=== PATIENT | male | born 1955 | race Caucasian/White ===

== ENCOUNTER → 2024-04-08 | Outpatient (CLI) | payer MEDICARE, OTHER, SELFPAY ==
[2024-04-08 11:57] LABS: Erythrocyte Sedimentation Rate 35 mm/hr (0-20)
[2024-04-08 12:00] LABS: Prothrombin Time (Protime)PT. 13.1 SECONDS (11.7-14.9)
[2024-04-08 12:01] LABS: ALB/GLOB Ratio 1.3 RATIO (0.9-2.4); AST(SGOT) 25 U/L (<=37); Alanine Aminotransfer ALT/SGPT 31 U/L (<=46); Albumin, Serum 4.2 g/dL (3.4-4.8); Alkaline Phosphatase 77 U/L (40-129); Anion Gap 14 (5-15); BUN 18 mg/dL (4-19); Calcium 9.1 mg/dL (7.6-11.0); Carbon Dioxide 24.4 mmol/L (22.0-29.0); Chloride 100 mmol/L (96-108); EST Glomerular Filtration Rate 66 (>60); Globulin 3.3 g/dL (2.2-4.2); Glucose 114 mg/dL (70-99); Potassium 3.5 mmol/L (3.3-5.1); Protein, Total 7.5 g/dL (5.9-8.4); Sodium Level 138 mmol/L (133-145); Total Bilirubin 0.43 mg/dL (0.00-1.30)
[2024-04-08 12:02] LABS: Ammonia 25.8 umol/L (16-60)
[2024-04-08 13:07] LABS: Iron 66 ug/dL (65-175); LDH 186 U/L (87-241)
[2024-04-09 03:56] LABS: Iron Binding Capacity,Total 248 ug/dL (250-450)
[2024-04-09 15:08] LABS: Alpha Antitrypsin Serum 165 mg/dL (101-187); Anti-Centromere B Ab <0.2 AI (0.0-0.9); Anti-Chromatin <0.2 AI (0.0-0.9); Anti-Jo <0.2 AI (0.0-0.9); Anti-Mitochondrial AB <20.0 Units (0.0-20.0); Anti-Scleroderma-70 AB <0.2 AI (0.0-0.9); Anti-dsDNA Ab <1 IU/mL (0-9); RNP Ab <0.2 AI (0.0-0.9); SJOGREN'S Anti-SS-A test < 0.2 AI (0.0-0.9); SJOGREN'S Anti-SS-B test < 0.2 AI (0.0-0.9); Smith Ab <0.2 AI (0.0-0.9)
[2024-04-14 18:07] LABS: AFP, Tumor Marker 3.2 ng/mL (0.0-8.4); Albumin 3.3 g/dL (2.9-4.4); Alpha-1-Globulins 0.3 g/dL (0.0-0.4); Alpha-2-Globulins 0.9 g/dL (0.4-1.0); Angiotensin Convert Enzyme 52 U/L (14-82); Anti-Smooth Muscle ABS 12 Units (0-19); Antithrombin 3 Function 125 % (75-135); Cytoplasmic Ab (C-ANCA) <1:20 titer (Neg:<1:20); Endomysial Antibody IgA Negative (Negative); Gamma Globulin 1.2 g/dL (0.4-1.8); Immunoglobulin A 339 mg/dL (61-437); Immunoglobulin E 218 IU/mL (6-495); Immunoglobulin G 1191 mg/dL (603-1613); Immunoglobulin M 96 mg/dL (20-172); PROEL- TOTAL PROTEIN 6.9 g/dL (6.0-8.5); Perinuclear Ab (P-ANCA) <1:20 titer (Neg:<1:20); Transferrin 209 mg/dL (177-329); t-Transglutaminase IgA <2 U/mL (0-3)
== END | disposition home or self-care (01) ==
LOC: LAB 11:00
PROVIDERS: PCP Physician Assistant; Referring Provider Internal Medicine Gastroenterology; Visit Provider Internal Medicine Gastroenterology
DX: K74.60 Unspecified cirrhosis of liver (principal); D64.9 Anemia, unspecified
CPT/HCPCS: 80053; 82103; 82105; 82140; 82164; 82784; 82785; 83516; 83540; 83550; 83615; 84165; 84466; 85300; 85610; 85652; 86037; 86140; 86225; 86235; 86255; 86334

== ENCOUNTER → 2024-04-26 | Day surgery (SDC) | payer MEDICARE, OTHER, SELFPAY ==
[2024-04-26 10:06] VITALS: BP 144/89; PULSE 54; RESP 14; TEMP 36.6; O2SAT 100
[2024-04-26] MEDS: Lidocaine Jelly 2% 20 ML Syringe (URO-JET) 1 APPLIC (10:08)
== END | disposition home or self-care (01) ==
PROVIDERS: PCP Physician Assistant; Referring Provider Physician Assistant; Visit Provider Internal Medicine Gastroenterology
PROC: F00ZJWZ Instrumental Swallowing and Oral Function Assessment using Swallowing Equipment (ICD-10-PCS; CPT 43235; principal; 2024-04-26 07:55)
DX: R13.10 Dysphagia, unspecified (principal)
CPT/HCPCS: 91010

== ENCOUNTER → 2024-05-24 | Outpatient (CLI) | payer MEDICARE, OTHER, SELFPAY ==
--- NOTE | 2024-05-25 08:26 | ST.MBS ---
Modified Barium Swallow Patient Information Study Date: 05/25/24 Study Time: 13:00 Direct Billable Minutes: 95 Total Minutes procedure & reportin Diagnosis: Dysphagia R13.10, GERD K21.9 Referring Physician: FriendStevie Medical History: The patient is a 69-year-old male with a history of hearing loss, gallstones, hypertension, gout, alcohol use disorder, and alcoholic cirrhosis with ascites, jaundice, and esophageal varices. He reports intermittent esophageal dysphagia and a persistent globus sensation. He had an EGD last year and two ENT evaluations, all of which were normal. A prior barium swallow was also unremarkable. He has not undergone esophageal manometry or functional swallow studies. A modified barium swallow is recommended to further evaluate his swallowing function. Mental Status: WNL Respiratory Status: Oxygenating on Room Air Penetration-Aspiration Scale Penetration-Aspiration Scale: OBJECTIVE ASSESSMENT OF SWALLOW FUNCTION (QUANTITATIVE ? PER TRIAL): PENETRATION / ASPIRATION SCALE (DOMINGUEZ): 1 = does not enter airway 2 = enters airway/above vocal folds/ejected 3 = enters airway/above vocal folds/not ejected 4 = enters airway/contacts vocal folds/ejected 5 = enters airway/contacts vocal folds/not ejected 6 = enters airway/below vocal folds/ejected 7 = enters airway/below vocal folds/not ejected despite effort 8 = enters airway/below vocal folds/no effort VIDEOFLOROSCOPIC SCALE SCORE (DOMINGUEZ): Grade I = aspiration of material that has penetrated into the laryngeal vestibule, intact cough reflex Grade II = aspiration < 10 % of the bolus, intact cough reflex Grade III = aspiration of < 10 % of the bolus, reduced cough reflex or aspiration of > 10 % of the bolus, intact cough reflex Grade IV = aspiration of > 10 % of the bolus, reduced cough reflex Penetration-Aspiration Scale Score Thin Liquid via teaspoon: Result: 1= does not enter airway Thin Liquid via small single sip: cup: Result: 1= does not enter airway Thin Liquid via large single sip: cup: Result: 5= enters airways/contacts vocal folds/not ejected Thin Liquid via small single sip: cup Effortful swallow: Result: 1= does not enter airway Thin Liquid via small single sip: cup Effortful swallow Trial 2: Result: 1= does not enter airway [place] Thick Liquid via small single sip: cup: Result: 2= enter airway/above vocal folds/ejected [place] Thick Liquid via small single sip: cup Trial 2: Result: 1= does not enter airway [place] Thick Liquid via small single sip: cup: Result: 1= does not enter airway [place] Thick Liquid via small single sip: cup Trial 2: Result: 1= does not enter airway Pudding via teaspoon: Result: 1= does not enter airway Pudding via teaspoon Trial 2: Result: 1= does not enter airway Cookie: Result: 1= does not enter airway Thin Liquid via small single sip: cup Effortful swallow Trial 3: Result: 1= does not enter airway Thin Liquid via small single sip: cup Effortful swallow Trial 4: Result: 1= does not enter airway Cookie Trial 2: Result: 1= does not enter airway Thin Liquid via single sip: straw Effortful swallow: Result: 1= does not enter airway Oral Phase Labial Seal: No Labial Escape Tongue Control During Bolus Hold: Posterior escape of greater than half of bolus Bolus Preparation/Mastication: Slow prolonged chewing/mashing with complete recollection Bolus Transport/Lingual Motion: Brisk tongue motion Oral Residue: Trace residue lining oral structures Pharyngeal Phase Initiation of Pharyngeal Swallow: Bolus head at posterior laryngeal surgace of epiglottis Soft Palate Elevation: No bolus between soft palate and pharyngeal wall Laryngeal Elevation: Partial superior movement thyroid cart/partial apprx aryt-epig petiole Anterior Hyoid Excursion: Complete anterior movement Epiglottic Movement: Complete inversion Laryngeal Vestibule Closure at Height of Swallow: Incomplete; narrow column of air/contrast in laryngeal vestibule Pharyngeal Stripping Wave: Present - complete Pharyngoesophageal Segment Opening: Parital distension and partial duration; parital obstruction of flow Tongue Base Retraction: Narrow column of contrast between tongue base & post. pharyngeal wall Pharyngeal Residue: Collection of residue within or on pharyngeal structures Esophageal Phase Esophageal Clearance: Esophageal retention w/ retrograde flow below pharyngoesophageal seg. Treatment Strategies Effects of treatment strategies attemped:: reduced bolus size = effective effortful swallow = effective double swallow = effective Diagnosis/Impression Diagnosis: mild pharyngoesophageal dysphagia R13.14 Impression: The patient presents with mild pharyngoesophageal dysphagia. During the swallowing assessment, he demonstrated good bolus control and no premature spillage when cued by the INFANTRY SENIOR SERGEANT to hold the bolus in his mouth prior to swallow initiation (thin liquids via teaspoon, first trial). However, with larger sips, decreased bolus control was observed, resulting in premature spillage and penetration to the vocal cords. This was associated with delayed pharyngeal swallow onset, with the bolus spilling to the posterior epiglottic space prior to initiation. Penetration was also attributed to reduced laryngeal elevation and incomplete airway closure, though the patient demonstrated a strong, effective cough reflex in response. When cued to take small sips by cup followed by a hard swallow, bolus control and airway protection significantly improved, with consistent PAS scores of 1. Tongue base retraction appeared narrow, contributing to mild pharyngeal residue in the valleculae and pyriform sinuses. Residue was reduced with use of a double swallow strategy, as cued by the INFANTRY SENIOR SERGEANT. Mastication was adequate though slowed, likely due to dentition. The patient tolerated a Janessa Doone cookie with a functional oral phase, requiring two swallows to clear oral residue, achieving complete clearance independently. The patient was educated on aspiration precautions, including taking small sips, using hard and double swallows, with cup and straw drinking. These strategies effectively reduced aspiration risk, and the patient was able to demonstrate understanding via verbal teach-back during the session. Mild esophageal retention was noted during the cookie trial; a liquid wash provided partial clearance but resulted in some retrograde flow below the upper esophageal sphincter UES. The patient reported he had discontinued his reflux medication due to side effects, including significant fatigue and concern about falling asleep while driving. The INFANTRY SENIOR SERGEANT strongly recommended follow-up with GI to address reflux management and further intervention. Continued outpatient speech therapy was also encouraged. Recommendations Diet: Regular Textures and Thin Liquids Compensatory Strategies: Small Bites, Small Sips (with hard swallows), Slow Rate, Feed only when alert, Multiple Swallows (to clear pharyngeal residues), Sitting upright and Remain sitting upright for 30 minutes after PO intake Recommend Repeat Modified Barium Swallow: TBD Need for Skilled Speech Therapy Services: Yes Comment: The patient would benefit from skilled speech therapy services to provide education and training on dysphagia management, including compensatory swallowing strategies aimed at reducing aspiration risk. Additionally, therapy should focus on oropharyngeal strengthening exercises to improve bolus control, laryngeal elevation and closure, and tongue base retraction for more efficient and safe swallowing. Recommended Referrals: GI Consult Education Completed: 1. Described result of evaluation. and 2. Pt understands evaluation & agrees with goals and treatment plan. Status Active ST Patient: Active Contact Information [facility] Speech Therapy:: Irasema Manuel M.A. [facility]-INFANTRY SENIOR SERGEANT Speech-Language Pathologist [facility] [address] [place] [address] [email or web address] [phone]
== END | disposition home or self-care (01) ==
LOC: RAD 12:44
PROVIDERS: PCP Physician Assistant; Referring Provider Internal Medicine Gastroenterology; Visit Provider Internal Medicine Gastroenterology
DX: K74.60 Unspecified cirrhosis of liver (principal); K21.9 Gastro-esophageal reflux disease without esophagitis; R13.10 Dysphagia, unspecified
CPT/HCPCS: 74230; 92611

== ENCOUNTER → 2024-07-08 | Outpatient (CLI) | payer MEDICARE, OTHER, SELFPAY ==
--- NOTE | 2024-07-08 07:28 | US_ITS ---
PROCEDURE: ABD LIMITED W/ ELASTOGRAPHY 07/08/2024 REASON FOR EXAM: HX OF LIVER DISEASE TECHNIQUE: Right upper quadrant abdominal ultrasound along with shear wave elastography for non-invasive assessment of liver tissue stiffness. PATIENT PREPARATION: Per protocol COMPARISON: No relevant prior. FINDINGS: LIVER: Size: Enlarged. No intrahepatic ductal dilatation. Length: 22.0 cm Echotexture: Hyperechoic. Contour: Normal Lesions: None identified Blood flow: Hepatopetal. ELASTOGRAPHY: EQI Med: 9.4 kPa EQI Med Jono: 1.77 m/s GALLBLADDER: No calcifications. Gallbladder sludge/gravel. No wall thickening. No edema. COMMON BILE DUCT: 0.52 cm in diameter.. PANCREAS: Suboptimal visualization due to superimposed bowel-gas. RIGHT KIDNEY: Size measures 10.8 x 5.7 x 6.2 cm. Cortex measures 1.7 cm. Sonolucent mass, right kidney measuring 2.3 x 2.7 x 2.4 cm. US/ABD Limited w/ Elastography IMPRESSION: 1. F 2 to F 3, moderate to severe likelihood of clinically significant hepatic fibrosis. 2. Steatosis. 3. Hepatomegaly. 4. Gallbladder sludge/gravel. 5. Right renal cyst. Reference Values: SRU <1.37 m/s (5.7kPa): No to mild fibrosis 1.37 m/s - 2.2 m/s: Moderate to severe fibrosis >2.2 m/s (15kPa): Significant fibrosis / cirrhosis METAVIR Score F2 or higher: 1.34 m/s (5.7kPa) F3 or higher: 1.55 m/s (7.3kPa) F4: 1.80 m/s (10kPa) Reading Location: [place] [address]
== END | disposition home or self-care (01) ==
LOC: US 07:25
PROVIDERS: PCP Physician Assistant
DX: K74.60 Unspecified cirrhosis of liver (principal); R13.10 Dysphagia, unspecified; K21.9 Gastro-esophageal reflux disease without esophagitis
CPT/HCPCS: 76705; 76981

== ENCOUNTER 2024-07-15 15:22 | Outpatient (RCR) | payer MEDICARE, OTHER, SELFPAY ==
--- NOTE | 2024-07-16 12:31 | ST ---
[facility] Speech Pathology [address] [place] [address] Modified Barium Swallow Study MR#: [id number] Acct: [id number] Name: NICOLE DHILLON Rep #: [id number] : 1955 69 From: Irasema Manuel Modified Barium Swallow Patient Information Study Date: 05/25/24 Study Time: 13:00 Direct Billable Minutes: 95 Total Minutes procedure & reportin Diagnosis: Dysphagia R13.10, GERD K21.9 Referring Physician: Stevie Castellano Medical History: The patient is a 69-year-old male with a history of hearing loss, gallstones, hypertension, gout, alcohol use disorder, and alcoholic cirrhosis with ascites, jaundice, and esophageal varices. He reports intermittent esophageal dysphagia and a persistent globus sensation. He had an EGD last year and two ENT evaluations, all of which were normal. A prior barium swallow was also unremarkable. He has not undergone esophageal manometry or functional swallow studies. A modified barium swallow is recommended to further evaluate his swallowing function. Mental Status: WNL Respiratory Status: Oxygenating on Room Air Penetration-Aspiration Scale Penetration-Aspiration Scale: OBJECTIVE ASSESSMENT OF SWALLOW FUNCTION (QUANTITATIVE ? PER TRIAL): PENETRATION / ASPIRATION SCALE (DOMINGUEZ): 1 = does not enter airway 2 = enters airway/above vocal folds/ejected 3 = enters airway/above vocal folds/not ejected 4 = enters airway/contacts vocal folds/ejected 5 = enters airway/contacts vocal folds/not ejected 6 = enters airway/below vocal folds/ejected 7 = enters airway/below vocal folds/not ejected despite effort 8 = enters airway/below vocal folds/no effort VIDEOFLOROSCOPIC SCALE SCORE (DOMINGUEZ): Grade I = aspiration of material that has penetrated into the laryngeal vestibule, intact cough reflex Grade II = aspiration < 10 % of the bolus, intact cough reflex Grade III = aspiration of < 10 % of the bolus, reduced cough reflex or aspiration of > 10 % of the bolus, intact cough reflex Grade IV = aspiration of > 10 % of the bolus, reduced cough reflex Penetration-Aspiration Scale Score Thin Liquid via teaspoon: Result: 1= does not enter airway Thin Liquid via small single sip: cup: Result: 1= does not enter airway Thin Liquid via large single sip: cup: Result: 5= enters airways/contacts vocal folds/not ejected Thin Liquid via small single sip: cup Effortful swallow: Result: 1= does not enter airway Thin Liquid via small single sip: cup Effortful swallow Trial 2: Result: 1= does not enter airway [place] Thick Liquid via small single sip: cup: Result: 2= enter airway/above vocal folds/ejected [place] Thick Liquid via small single sip: cup Trial 2: Result: 1= does not enter airway [place] Thick Liquid via small single sip: cup: Result: 1= does not enter airway [place] Thick Liquid via small single sip: cup Trial 2: Result: 1= does not enter airway Pudding via teaspoon: Result: 1= does not enter airway Pudding via teaspoon Trial 2: Result: 1= does not enter airway Cookie: Result: 1= does not enter airway Thin Liquid via small single sip: cup Effortful swallow Trial 3: Result: 1= does not enter airway Thin Liquid via small single sip: cup Effortful swallow Trial 4: Result: 1= does not enter airway Cookie Trial 2: Result: 1= does not enter airway Thin Liquid via single sip: straw Effortful swallow: Result: 1= does not enter airway Oral Phase Labial Seal: No Labial Escape Tongue Control During Bolus Hold: Posterior escape of greater than half of bolus Bolus Preparation/Mastication: Slow prolonged chewing/mashing with complete recollection Bolus Transport/Lingual Motion: Brisk tongue motion Oral Residue: Trace residue lining oral structures Pharyngeal Phase Initiation of Pharyngeal Swallow: Bolus head at posterior laryngeal surgace of epiglottis Soft Palate Elevation: No bolus between soft palate and pharyngeal wall Laryngeal Elevation: Partial superior movement thyroid cart/partial apprx aryt-epig petiole Anterior Hyoid Excursion: Complete anterior movement Epiglottic Movement: Complete inversion Laryngeal Vestibule Closure at Height of Swallow: Incomplete; narrow column of air/contrast in laryngeal vestibule Pharyngeal Stripping Wave: Present - complete Pharyngoesophageal Segment Opening: Parital distension and partial duration; parital obstruction of flow Tongue Base Retraction: Narrow column of contrast between tongue base & post. pharyngeal wall Pharyngeal Residue: Collection of residue within or on pharyngeal structures Esophageal Phase Esophageal Clearance: Esophageal retention w/ retrograde flow below pharyngoesophageal seg. Treatment Strategies Effects of treatment strategies attemped:: reduced bolus size = effective effortful swallow = effective double swallow = effective Diagnosis/Impression Diagnosis: mild pharyngoesophageal dysphagia R13.14 Impression: The patient presents with mild pharyngoesophageal dysphagia. During the swallowing assessment, he demonstrated good bolus control and no premature spillage when cued by the INBOUND CALL CENTER REPRESENTATIVE to hold the bolus in his mouth prior to swallow initiation (thin liquids via teaspoon, first trial). However, with larger sips, decreased bolus control was observed, resulting in premature spillage and penetration to the vocal cords. This was associated with delayed pharyngeal swallow onset, with the bolus spilling to the posterior epiglottic space prior to initiation. Penetration was also attributed to reduced laryngeal elevation and incomplete airway closure, though the patient demonstrated a strong, effective cough reflex in response. When cued to take small sips by cup followed by a hard swallow, bolus control and airway protection significantly improved, with consistent PAS scores of 1. Tongue base retraction appeared narrow, contributing to mild pharyngeal residue in the valleculae and pyriform sinuses. Residue was reduced with use of a double swallow strategy, as cued by the INBOUND CALL CENTER REPRESENTATIVE. Mastication was adequate though slowed, likely due to dentition. The patient tolerated a Janessa Doone cookie with a functional oral phase, requiring two swallows to clear oral residue, achieving complete clearance independently. The patient was educated on aspiration precautions, including taking small sips, using hard and double swallows, with cup and straw drinking. These strategies effectively reduced aspiration risk, and the patient was able to demonstrate understanding via verbal teach-back during the session. Mild esophageal retention was noted during the cookie trial; a liquid wash provided partial clearance but resulted in some retrograde flow below the upper esophageal sphincter UES. The patient reported he had discontinued his reflux medication due to side effects, including significant fatigue and concern about falling asleep while driving. The INBOUND CALL CENTER REPRESENTATIVE strongly recommended follow-up with GI to address reflux management and further intervention. Continued outpatient speech therapy was also encouraged. Recommendations Diet: Regular Textures and Thin Liquids Compensatory Strategies: Small Bites, Small Sips (with hard swallows), Slow Rate, Feed only when alert, Multiple Swallows (to clear pharyngeal residues), Sitting upright and Remain sitting upright for 30 minutes after PO intake Recommend Repeat Modified Barium Swallow: TBD Need for Skilled Speech Therapy Services: Yes Comment: The patient would benefit from skilled speech therapy services to provide education and training on dysphagia management, including compensatory swallowing strategies aimed at reducing aspiration risk. Additionally, therapy should focus on oropharyngeal strengthening exercises to improve bolus control, laryngeal elevation and closure, and tongue base retraction for more efficient and safe swallowing. Recommended Referrals: GI Consult Education Completed: 1. Described result of evaluation. and 2. Pt understands evaluation & agrees with goals and treatment plan. Status Active ST Patient: Active Contact Information [facility] Speech Therapy:: Irasema Manuel M.A. [facility]-INBOUND CALL CENTER REPRESENTATIVE Speech-Language Pathologist [facility] [address] [place] [address] [email or web address] [phone]
--- NOTE | 2024-07-16 14:00 | HP.SP.EV_ITS ---
Visit History Visit Info Date of Eval: 07/15/24 Today is Visit #: 1 Cutter In: [facility] [place] Attending Doctor: JOELLEN Referring Doctor: JOELLEN Reason for Referral: DYSPHAGIA RX HERE Results: Has previously participated in a MBSS. See results below. Other Relevant Medical History/Diagnoses/Surgery: NICOLE DHILLON is a 69 year old male who presents to speech therapy following a dx of oropharyngeal dysphagia after participating in an MBSS in May 2024 at this facility. He is being followed by Dr. Castellano for GI and has participated in esophageal manometry on 04/26 which revealed: 1) EGJ with normal relaxation and a mean integral resting pressure of -4.5 with normal is less than 15; 2) Esophageal body consistent with spastic esophagus with 85% premature contraction which is greater than the upper limit of normal of 20%; 3) diagnosis is distal esophageal spasm. He was prescribed Amitriptyline, Protonix, and Baclofen however he reports that he is no longer taking these because he didn't like how they made him feel. He reports making diet changes and notices symptoms return if he eats spicy, acidic or hot items. Smoking Status: Former smoker Diagnosis Diagnosis: Oropharyngeal Dysphagia Pain Is pain an issue with your current prescribed condition?: No Personal Preferred language: [place] Patient Allergies Allergies Allergies: Allergies No Known Allergies Allergy (Unverified 06/17/24 09:22) Objective Dysphagia Thin Liquids Administred via: Cup Oral Transit: WNL Bolus clearance: fully cleared Cough: delayed, throat clear and productive Pharyngeal phase: suspect pharyngeal deficits Comments: Pt took sips of thin liquid throughout evaluation to help with secretion production during oropharyngeal exercise trials. He did well with remembering to use small sips. Pt reporting that he knows when he forgets to take small sips because he will almost always cough. Says when he is driving this is distracting to him and he often forgets small sips. Recommended placing a sticky note on his dash to help as a visual aid. Swallowing Impairment Contributing Factors to Swallowing Impairment: Reduced Alertness or Attention and Reduced Laryngeal Excursion Recommendations Swallowing Treatment: Yes Diet Texture Recommendations Solids: Regular (Level 7) Liquids: Thin (Level 0) Safety Saftey Precautions/Swallowing Recommendations (Check all that Apply): Small Sips & Bites when Eating, Multiple Swallows and Other (Specify Below) Other: Effortful swallow Double swallow to assist in esophageal dysphagia Results Swallowing Within Normal Limits: No Swallowing Diagnosis: Oropharyngeal Phase Dysphagia (R13.12) Severity: Mild Modified Barium Results Hx If Applicable Enter into a NOTE MBS Report Entered: Yes MBS Results (from prior exam): 07/16/24 12:31 Speech Therapy by Jacki Figueroa [facility] Speech Pathology [address] [place] [address] Modified Barium Swallow Study MR#: [id number] Acct: [id number] Name: NICOLE DHILLON Rep #: [id number] : 1955 69 From: Irasema Manuel Modified Barium Swallow Patient Information Study Date: 05/25/24 Study Time: 13:00 Direct Billable Minutes: 95 Total Minutes procedure & reportin Diagnosis: Dysphagia R13.10, GERD K21.9 Referring Physician: Stevie Castellano Medical History: The patient is a 69-year-old male with a history of hearing loss, gallstones, hypertension, gout, alcohol use disorder, and alcoholic cirrhosis with ascites, jaundice, and esophageal varices. He reports intermittent esophageal dysphagia and a persistent globus sensation. He had an EGD last year and two ENT evaluations, all of which were normal. A prior barium swallow was also unremarkable. He has not undergone esophageal manometry or functional swallow studies. A modified barium swallow is recommended to further evaluate his swallowing function. Mental Status: WNL Respiratory Status: Oxygenating on Room Air Penetration-Aspiration Scale Penetration-Aspiration Scale: OBJECTIVE ASSESSMENT OF SWALLOW FUNCTION (QUANTITATIVE ? PER TRIAL): PENETRATION / ASPIRATION SCALE (DOMINGUEZ): 1 = does not enter airway 2 = enters airway/above vocal folds/ejected 3 = enters airway/above vocal folds/not ejected 4 = enters airway/contacts vocal folds/ejected 5 = enters airway/contacts vocal folds/not ejected 6 = enters airway/below vocal folds/ejected 7 = enters airway/below vocal folds/not ejected despite effort 8 = enters airway/below vocal folds/no effort VIDEOFLOROSCOPIC SCALE SCORE (DOMINGUEZ): Grade I = aspiration of material that has penetrated into the laryngeal vestibule, intact cough reflex Grade II = aspiration < 10 % of the bolus, intact cough reflex Grade III = aspiration of < 10 % of the bolus, reduced cough reflex or aspiration of > 10 % of the bolus, intact cough reflex Grade IV = aspiration of > 10 % of the bolus, reduced cough reflex Penetration-Aspiration Scale Score Thin Liquid via teaspoon: Result: 1= does not enter airway Thin Liquid via small single sip: cup: Result: 1= does not enter airway Thin Liquid via large single sip: cup: Result: 5= enters airways/contacts vocal folds/not ejected Thin Liquid via small single sip: cup Effortful swallow: Result: 1= does not enter airway Thin Liquid via small single sip: cup Effortful swallow Trial 2: Result: 1= does not enter airway [place] Thick Liquid via small single sip: cup: Result: 2= enter airway/above vocal folds/ejected [place] Thick Liquid via small single sip: cup Trial 2: Result: 1= does not enter airway [place] Thick Liquid via small single sip: cup: Result: 1= does not enter airway [place] Thick Liquid via small single sip: cup Trial 2: Result: 1= does not enter airway Pudding via teaspoon: Result: 1= does not enter airway Pudding via teaspoon Trial 2: Result: 1= does not enter airway Cookie: Result: 1= does not enter airway Thin Liquid via small single sip: cup Effortful swallow Trial 3: Result: 1= does not enter airway Thin Liquid via small single sip: cup Effortful swallow Trial 4: Result: 1= does not enter airway Cookie Trial 2: Result: 1= does not enter airway Thin Liquid via single sip: straw Effortful swallow: Result: 1= does not enter airway Oral Phase Labial Seal: No Labial Escape Tongue Control During Bolus Hold: Posterior escape of greater than half of bolus Bolus Preparation/Mastication: Slow prolonged chewing/mashing with complete recollection Bolus Transport/Lingual Motion: Brisk tongue motion Oral Residue: Trace residue lining oral structures Pharyngeal Phase Initiation of Pharyngeal Swallow: Bolus head at posterior laryngeal surgace of epiglottis Soft Palate Elevation: No bolus between soft palate and pharyngeal wall Laryngeal Elevation: Partial superior movement thyroid cart/partial apprx aryt- epig petiole Anterior Hyoid Excursion: Complete anterior movement Epiglottic Movement: Complete inversion Laryngeal Vestibule Closure at Height of Swallow: Incomplete; narrow column of air/contrast in laryngeal vestibule Pharyngeal Stripping Wave: Present - complete Pharyngoesophageal Segment Opening: Parital distension and partial duration; parital obstruction of flow Tongue Base Retraction: Narrow column of contrast between tongue base & post. pharyngeal wall Pharyngeal Residue: Collection of residue within or on pharyngeal structures Esophageal Phase Esophageal Clearance: Esophageal retention w/ retrograde flow below pharyngoesophageal seg. Treatment Strategies Effects of treatment strategies attemped:: reduced bolus size = effective effortful swallow = effective double swallow = effective Diagnosis/Impression Diagnosis: mild pharyngoesophageal dysphagia R13.14 Impression: The patient presents with mild pharyngoesophageal dysphagia. During the swallowing assessment, he demonstrated good bolus control and no premature spillage when cued by the WOOD DRILLING MACHINE OPERATOR to hold the bolus in his mouth prior to swallow initiation (thin liquids via teaspoon, first trial). However, with larger sips, decreased bolus control was observed, resulting in premature spillage and penetration to the vocal cords. This was associated with delayed pharyngeal swallow onset, with the bolus spilling to the posterior epiglottic space prior to initiation. Penetration was also attributed to reduced laryngeal elevation and incomplete airway closure, though the patient demonstrated a strong, effective cough reflex in response. When cued to take small sips by cup followed by a hard swallow, bolus control and airway protection significantly improved, with consistent PAS scores of 1. Tongue base retraction appeared narrow, contributing to mild pharyngeal residue in the valleculae and pyriform sinuses. Residue was reduced with use of a double swallow strategy, as cued by the WOOD DRILLING MACHINE OPERATOR. Mastication was adequate though slowed, likely due to dentition. The patient tolerated a Janessa Doone cookie with a functional oral phase, requiring two swallows to clear oral residue, achieving complete clearance independently. The patient was educated on aspiration precautions, including taking small sips, using hard and double swallows, with cup and straw drinking. These strategies effectively reduced aspiration risk, and the patient was able to demonstrate understanding via verbal teach-back during the session. Mild esophageal retention was noted during the cookie trial; a liquid wash provided partial clearance but resulted in some retrograde flow below the upper esophageal sphincter UES. The patient reported he had discontinued his reflux medication due to side effects, including significant fatigue and concern about falling asleep while driving. The WOOD DRILLING MACHINE OPERATOR strongly recommended follow-up with GI to address reflux management and further intervention. Continued outpatient speech therapy was also encouraged. Recommendations Diet: Regular Textures and Thin Liquids Compensatory Strategies: Small Bites, Small Sips (with hard swallows), Slow Rate, Feed only when alert, Multiple Swallows (to clear pharyngeal residues), Sitting upright and Remain sitting upright for 30 minutes after PO intake Recommend Repeat Modified Barium Swallow: TBD Need for Skilled Speech Therapy Services: Yes Comment: The patient would benefit from skilled speech therapy services to provide educ ation and training on dysphagia management, including compensatory swallowing strategies aimed at reducing aspiration risk. Additionally, therapy should focus on oropharyngeal strengthening exercises to improve bolus control, laryngeal elevation and closure, and tongue base retraction for more efficient and safe swallowing. Recommended Referrals: GI Consult Education Completed: 1. Described result of evaluation. and 2. Pt understands evaluation & agrees with goals and treatment plan. Status Active ST Patient: Active Contact Information [facility] Speech Therapy:: Irasema Manuel M.A. [facility]-WOOD DRILLING MACHINE OPERATOR Speech-Language Pathologist [facility] [address] [place] [address] [email or web address] [phone] Initialized on 07/16/24 12:31 - END OF NOTE Swallowing Performance Scale Swallowing Performance Scale Swallowing Performance Scale Result: 3 Mild Reference: Neuro-QoL instrument Radiation Oncology Patient Other Other Education: -: Education re: the results of his swallow study were provided via showing him the images from the MBSS, pointing out anatomical landmarks, along with identifying the areas of weakness. Pt reporting he appreciated being shown the pictures again since it had been a while since he saw them. ST also provided education on home exercise program for oropharyngeal strengthening. Educated Pt on effortful swallow, gargle, Shaker, Barbi, Izabela, and chin tuck against resistance. Pt modeled all of these exercises for ST to show understanding of what he is suppose to do at home. Instructional handout of each exercise was provided along with an Morgan tracker sheet to help with monitoring completion of exercises. Put all paperwork into a folder for him to take home. Plan Plan Plan: Will rx Pt for skilled outpatient tx to address deficits in mild oropharyngeal dysphagia. Pt would benefit from training and education re: diet tolerance checks and HEP for oropharyngeal strengthening. Without skilled intervention, Pt is at risk for consuming a restrictive diet putting him at risk for aspiration pneumonia and atrophy of laryngeal musculature. Would also consider a repeat MBSS or FEES to determine progress following implementation of HEP. Recommendations Treatment Warranted: Yes Treatment Warranted: Dysphagia Progress Prognosis: Excellent Frequency Additional (Frequency): 1x follow-up session, then follow-up again in 3 weeks Would then plan for an objective assessment (MBSS or FEES) Duration: 3 Months Goals that are Established Determination:: Goals will be added/modified as deemed necessary and appropriate. Therapy will be discontinued when results of re-evaluation indicate therapy is no longer needed or lack of progress has been documented. Goal #1-5 Goal #1: Nicole will complete oropharyngeal exercises for 10-15 reps, 2x/day independently to improve tongue base retraction, PES opening/distention, and hyolaryngeal elevation and excursion per patient report. Goal #2: [place] will participate in Modified Barium Swallow (MBS) study or Fiberoptic Endoscopic Evaluation of Swallow (FEES) to objectively assess Pt's oropharyngeal swallow function to determine the least restrictive means of nutrition and progress from participating in pharyngeal strengthening exercises. Goal #3: [place] will utilize swallowing strategies (small bites/sips, double swallow, effortful swallow) and tolerate least restrictive diet with no overt s/s of aspiration/penetration to aid in safe consumption of solid/liquids independently. Education Patient has Indicated that the Following Identified Educational Needs: None The Patient has indicated that they have no educational or learning abilities that may effect their care.: Yes Patient Instruction Patient Education: Diagnosis, Treatment Plan, Goals, Safety Precautions, Diet Level and Home Exercise Program Person Taught: Patient Teaching Method: Discussion, Demonstration and Handout Response to teaching: Return Demonstration and Verbalize Understanding
--- NOTE | 2024-09-26 08:59 | HP.SP.EVAL ---
Visit History Visit Info Date of Eval: 07/15/24 Today is Visit #: 1 Interior Surface Insulation Worker: NANI Barksdale Attending Doctor: JOELLEN Referring Doctor: JOELLEN Reason for Referral: DYSPHAGIA RX HERE Results: Has previously participated in a MBSS. See results below. Other Relevant Medical History/Diagnoses/Surgery: NICOLE DHILLON is a 69 year old male who presents to speech therapy following a dx of oropharyngeal dysphagia after participating in an MBSS in May 2024 at this facility. He is being followed by Dr. Castellano for GI and has participated in esophageal manometry on 04/26 which revealed: 1) EGJ with normal relaxation and a mean integral resting pressure of -4.5 with normal is less than 15; 2) Esophageal body consistent with spastic esophagus with 85% premature contraction which is greater than the upper limit of normal of 20%; 3) diagnosis is distal esophageal spasm. He was prescribed Amitriptyline, Protonix, and Baclofen however he reports that he is no longer taking these because he didn't like how they made him feel. He reports making diet changes and notices symptoms return if he eats spicy, acidic or hot items. Smoking Status: Former smoker Diagnosis Diagnosis: Oropharyngeal Dysphagia Pain Is pain an issue with your current prescribed condition?: No Personal Preferred language: Swazi Patient Allergies Allergies Allergies: Allergies No Known Allergies Allergy (Unverified 06/17/24 09:22) Objective Dysphagia Thin Liquids Administred via: Cup Oral Transit: WNL Bolus clearance: fully cleared Cough: delayed, throat clear and productive Pharyngeal phase: suspect pharyngeal deficits Comments: Pt took sips of thin liquid throughout evaluation to help with secretion production during oropharyngeal exercise trials. He did well with remembering to use small sips. Pt reporting that he knows when he forgets to take small sips because he will almost always cough. Says when he is driving this is distracting to him and he often forgets small sips. Recommended placing a sticky note on his dash to help as a visual aid. Swallowing Impairment Contributing Factors to Swallowing Impairment: Reduced Alertness or Attention and Reduced Laryngeal Excursion Recommendations Swallowing Treatment: Yes Diet Texture Recommendations Solids: Regular (Level 7) Liquids: Thin (Level 0) Safety Saftey Precautions/Swallowing Recommendations (Check all that Apply): Small Sips & Bites when Eating, Multiple Swallows and Other (Specify Below) Other: Effortful swallow Double swallow to assist in esophageal dysphagia Results Swallowing Within Normal Limits: No Swallowing Diagnosis: Oropharyngeal Phase Dysphagia (R13.12) Severity: Mild Modified Barium Results Hx If Applicable Enter into a NOTE MBS Report Entered: Yes MBS Results (from prior exam): 07/16/24 12:31 Speech Therapy by Jacki Figueroa [facility] [address] [place] [address] Modified Barium Swallow Study MR#: [id number] Acct: [id number] Name: NICOLE DHILLON Rep #: [id number] : 1955 69 From: Irasema Manuel Modified Barium Swallow Patient Information Study Date: 05/25/24 Study Time: 13:00 Direct Billable Minutes: 95 Total Minutes procedure & reportin Diagnosis: Dysphagia R13.10, GERD K21.9 Referring Physician: Stevie Castellano Medical History: The patient is a 69-year-old male with a history of hearing loss, gallstones, hypertension, gout, alcohol use disorder, and alcoholic cirrhosis with ascites, jaundice, and esophageal varices. He reports intermittent esophageal dysphagia and a persistent globus sensation. He had an EGD last year and two ENT evaluations, all of which were normal. A prior barium swallow was also unremarkable. He has not undergone esophageal manometry or functional swallow studies. A modified barium swallow is recommended to further evaluate his swallowing function. Mental Status: WNL Respiratory Status: Oxygenating on Room Air Penetration-Aspiration Scale Penetration-Aspiration Scale: OBJECTIVE ASSESSMENT OF SWALLOW FUNCTION (QUANTITATIVE ? PER TRIAL): PENETRATION / ASPIRATION SCALE (DOMINGUEZ): 1 = does not enter airway 2 = enters airway/above vocal folds/ejected 3 = enters airway/above vocal folds/not ejected 4 = enters airway/contacts vocal folds/ejected 5 = enters airway/contacts vocal folds/not ejected 6 = enters airway/below vocal folds/ejected 7 = enters airway/below vocal folds/not ejected despite effort 8 = enters airway/below vocal folds/no effort VIDEOFLOROSCOPIC SCALE SCORE (DOMINGUEZ): Grade I = aspiration of material that has penetrated into the laryngeal vestibule, intact cough reflex Grade II = aspiration < 10 % of the bolus, intact cough reflex Grade III = aspiration of < 10 % of the bolus, reduced cough reflex or aspiration of > 10 % of the bolus, intact cough reflex Grade IV = aspiration of > 10 % of the bolus, reduced cough reflex Penetration-Aspiration Scale Score Thin Liquid via teaspoon: Result: 1= does not enter airway Thin Liquid via small single sip: cup: Result: 1= does not enter airway Thin Liquid via large single sip: cup: Result: 5= enters airways/contacts vocal folds/not ejected Thin Liquid via small single sip: cup Effortful swallow: Result: 1= does not enter airway Thin Liquid via small single sip: cup Effortful swallow Trial 2: Result: 1= does not enter airway Hough Thick Liquid via small single sip: cup: Result: 2= enter airway/above vocal folds/ejected Hough Thick Liquid via small single sip: cup Trial 2: Result: 1= does not enter airway Honey Thick Liquid via small single sip: cup: Result: 1= does not enter airway Honey Thick Liquid via small single sip: cup Trial 2: Result: 1= does not enter airway Pudding via teaspoon: Result: 1= does not enter airway Pudding via teaspoon Trial 2: Result: 1= does not enter airway Cookie: Result: 1= does not enter airway Thin Liquid via small single sip: cup Effortful swallow Trial 3: Result: 1= does not enter airway Thin Liquid via small single sip: cup Effortful swallow Trial 4: Result: 1= does not enter airway Cookie Trial 2: Result: 1= does not enter airway Thin Liquid via single sip: straw Effortful swallow: Result: 1= does not enter airway Oral Phase Labial Seal: No Labial Escape Tongue Control During Bolus Hold: Posterior escape of greater than half of bolus Bolus Preparation/Mastication: Slow prolonged chewing/mashing with complete recollection Bolus Transport/Lingual Motion: Brisk tongue motion Oral Residue: Trace residue lining oral structures Pharyngeal Phase Initiation of Pharyngeal Swallow: Bolus head at posterior laryngeal surgace of epiglottis Soft Palate Elevation: No bolus between soft palate and pharyngeal wall Laryngeal Elevation: Partial superior movement thyroid cart/partial apprx aryt-epig petiole Anterior Hyoid Excursion: Complete anterior movement Epiglottic Movement: Complete inversion Laryngeal Vestibule Closure at Height of Swallow: Incomplete; narrow column of air/contrast in laryngeal vestibule Pharyngeal Stripping Wave: Present - complete Pharyngoesophageal Segment Opening: Parital distension and partial duration; parital obstruction of flow Tongue Base Retraction: Narrow column of contrast between tongue base & post. pharyngeal wall Pharyngeal Residue: Collection of residue within or on pharyngeal structures Esophageal Phase Esophageal Clearance: Esophageal retention w/ retrograde flow below pharyngoesophageal seg. Treatment Strategies Effects of treatment strategies attemped:: reduced bolus size = effective effortful swallow = effective double swallow = effective Diagnosis/Impression Diagnosis: mild pharyngoesophageal dysphagia R13.14 Impression: The patient presents with mild pharyngoesophageal dysphagia. During the swallowing assessment, he demonstrated good bolus control and no premature spillage when cued by the SPLICING MACHINE OPERATOR AUTOMATIC to hold the bolus in his mouth prior to swallow initiation (thin liquids via teaspoon, first trial). However, with larger sips, decreased bolus control was observed, resulting in premature spillage and penetration to the vocal cords. This was associated with delayed pharyngeal swallow onset, with the bolus spilling to the posterior epiglottic space prior to initiation. Penetration was also attributed to reduced laryngeal elevation and incomplete airway closure, though the patient demonstrated a strong, effective cough reflex in response. When cued to take small sips by cup followed by a hard swallow, bolus control and airway protection significantly improved, with consistent PAS scores of 1. Tongue base retraction appeared narrow, contributing to mild pharyngeal residue in the valleculae and pyriform sinuses. Residue was reduced with use of a double swallow strategy, as cued by the SPLICING MACHINE OPERATOR AUTOMATIC. Mastication was adequate though slowed, likely due to dentition. The patient tolerated a Janessa Doone cookie with a functional oral phase, requiring two swallows to clear oral residue, achieving complete clearance independently. The patient was educated on aspiration precautions, including taking small sips, using hard and double swallows, with cup and straw drinking. These strategies effectively reduced aspiration risk, and the patient was able to demonstrate understanding via verbal teach-back during the session. Mild esophageal retention was noted during the cookie trial; a liquid wash provided partial clearance but resulted in some retrograde flow below the upper esophageal sphincter UES. The patient reported he had discontinued his reflux medication due to side effects, including significant fatigue and concern about falling asleep while driving. The SPLICING MACHINE OPERATOR [employer]IC strongly recommended follow-up with GI to address reflux management and further intervention. Continued outpatient speech therapy was also encouraged. Recommendations Diet: Regular Textures and Thin Liquids Compensatory Strategies: Small Bites, Small Sips (with hard swallows), Slow Rate, Feed only when alert, Multiple Swallows (to clear pharyngeal residues), Sitting upright and Remain sitting upright for 30 minutes after PO intake Recommend Repeat Modified Barium Swallow: TBD Need for Skilled Speech Therapy Services: Yes Comment: The patient would benefit from skilled speech therapy services to provide education and training on dysphagia management, including compensatory swallowing strategies aimed at reducing aspiration risk. Additionally, therapy should focus on oropharyngeal strengthening exercises to improve bolus control, laryngeal elevation and closure, and tongue base retraction for more efficient and safe swallowing. Recommended Referrals: GI Consult Education Completed: 1. Described result of evaluation. and 2. Pt understands evaluation & agrees with goals and treatment plan. Status Active ST Patient: Active Contact Information [facility] Speech Therapy:: Irasema Manuel M.A. [facility]3]-SPLICING MACHINE OPERATOR [employer] Speech-Language Pathologist [facility] [address] [place] [address] [email or web address] [phone] Initialized on 07/16/24 12:31 - END OF NOTE Swallowing Performance Scale Swallowing Performance Scale Swallowing Performance Scale Result: 3 Mild Reference: Neuro-QoL instrument Radiation Oncology Patient Other Other Education: -: Education re: the results of his swallow study were provided via showing him the images from the MBSS, pointing out anatomical landmarks, along with identifying the areas of weakness. Pt reporting he appreciated being shown the pictures again since it had been a while since he saw them. ST also provided education on home exercise program for oropharyngeal strengthening. Educated Pt on effortful swallow, gargle, Shaker, Barbi, Izabela, and chin tuck against resistance. Pt modeled all of these exercises for ST to show understanding of what he is suppose to do at home. Instructional handout of each exercise was provided along with an [place] tracker sheet to help with monitoring completion of exercises. Put all paperwork into a folder for him to take home. Plan Plan Plan: Will rx Pt for skilled outpatient tx to address deficits in mild oropharyngeal dysphagia. Pt would benefit from training and education re: diet tolerance checks and HEP for oropharyngeal strengthening. Without skilled intervention, Pt is at risk for consuming a restrictive diet putting him at risk for aspiration pneumonia and atrophy of laryngeal musculature. Would also consider a repeat MBSS or FEES to determine progress following implementation of HEP. Recommendations Treatment Warranted: Yes Treatment Warranted: Dysphagia Progress Prognosis: Excellent Frequency Additional (Frequency): 1x follow-up session, then follow-up again in 3 weeks Would then plan for an objective assessment (MBSS or FEES) Duration: 3 Months Goals that are Established Determination:: Goals will be added/modified as deemed necessary and appropriate. Therapy will be discontinued when results of re-evaluation indicate therapy is no longer needed or lack of progress has been documented. Goal #1-5 Goal #1: [place] will complete oropharyngeal exercises for 10-15 reps, 2x/day independently to improve tongue base retraction, PES opening/distention, and hyolaryngeal elevation and excursion per patient report. Goal #2: [place] will participate in Modified Barium Swallow (MBS) study or Fiberoptic Endoscopic Evaluation of Swallow (FEES) to objectively assess Pt's oropharyngeal swallow function to determine the least restrictive means of nutrition and progress from participating in pharyngeal strengthening exercises. Goal #3: Nicole will utilize swallowing strategies (small bites/sips, double swallow, effortful swallow) and tolerate least restrictive diet with no overt s/s of aspiration/penetration to aid in safe consumption of solid/liquids independently. Education Patient has Indicated that the Following Identified Educational Needs: None The Patient has indicated that they have no educational or learning abilities that may effect their care.: Yes Patient Instruction Patient Education: Diagnosis, Treatment Plan, Goals, Safety Precautions, Diet Level and Home Exercise Program Person Taught: Patient Teaching Method: Discussion, Demonstration and Handout Response to teaching: Return Demonstration and Verbalize Understanding
--- NOTE | 2024-09-26 08:59 | HP.SP.DC ---
ST Discharge Summary Discharged: Discharge: NICOLE DHILLON is a 69 year old male who presented for a dysphagia evaluation at [facility] on 07/15/2024. At the time of evaluation, education was provided on his MBSS that was completed on 05/25/2024. Discussed his plan of care with goals created to target pharyngeal strengthening exercises, follow-up MBSS or FEES to evaluate progress of strengthening exercises, and inclusion of safe swallowing strategies during PO intake. After evaluation, Pt scheduled a follow up session in July which he rescheduled to August, then cancelled this appointment as well. At this time, Pt will be d/c d/t not returning to outpatient therapy a/o 09/26/2024. Thank you for allowing me to participate in the care of your patient. Will re-evaluate following script from physician.
== END 2024-07-15 19:00 | disposition home or self-care (01) ==
LOC: SP 15:22
PROVIDERS: PCP Physician Assistant
DX: R13.19 Other dysphagia (principal)
CPT/HCPCS: 92610

== ENCOUNTER 2024-11-19 05:50 | Day surgery (SDC) | payer MEDICARE, OTHER, SELFPAY ==
[2024-11-19] VITALS (7 sets, daily range): BP systolic 107–127; BP diastolic 65–70; PULSE 50–67; RESP 14–18; TEMP 36.2–36.3; O2SAT 95–99; BMI 39.1
[2024-11-19] MEDS: Lactated Ringers 1,000 ML 15 ML IV (06:39)
== END 2024-11-19 08:16 | disposition home or self-care (01) ==
LOC: EN 05:50 → AC 05:52
PROVIDERS: PCP Physician Assistant; Referring Provider Physician Assistant; Visit Provider Internal Medicine Gastroenterology
PROC: 0DJ08ZZ Inspection of Upper Intestinal Tract, Via Natural or Artificial Opening Endoscopic (ICD-10-PCS; CPT 43235; principal; 2024-11-19 06:55)
DX: K29.50 Unspecified chronic gastritis without bleeding (principal); K70.31 Alcoholic cirrhosis of liver with ascites; J44.9 Chronic obstructive pulmonary disease, unspecified; K21.00 Gastro-esophageal reflux disease with esophagitis, without bleeding; Z87.891 Personal history of nicotine dependence; K31.84 Gastroparesis; E78.00 Pure hypercholesterolemia, unspecified; I10 Essential (primary) hypertension; Z79.899 Other long term (current) drug therapy
CPT/HCPCS: 44361; 88305; 88342; J2405